=== PATIENT | female | born 2000 | race Caucasian/White ===

== ENCOUNTER → 2020-07-28 13:28 | Outpatient (BNVA) | payer OTHER, SELFPAY | PROVIDERS: Visit Provider Advanced Practice Midwife | DX: Z76.89 Persons encountering health services in other specified circumstances (principal) ==

== ENCOUNTER 2020-08-24 12:49 | Outpatient (REF) | payer OTHER, SELFPAY ==
[2020-08-26 09:57] LABS: C. trachomatis RNA TMA NOT DETECTED (NOT DETECTED); N. gonorrhoeae RNA TMA NOT DETECTED (NOT DETECTED)
== END 2020-08-24 12:50 | disposition home or self-care (01) ==
LOC: HO.LAB 12:49
PROVIDERS: Visit Provider Advanced Practice Midwife
DX: Z01.419 Encounter for gynecological examination (general) (routine) without abnormal findings (principal)
CPT/HCPCS: 36415; 81025; 87210; 87491; 87591

== ENCOUNTER → 2020-08-27 09:54 | Outpatient (BNVA) | payer OTHER, SELFPAY | PROVIDERS: Visit Provider Advanced Practice Midwife | DX: Z30.430 Encounter for insertion of intrauterine contraceptive device (principal) | CPT/HCPCS: 58300; 81025 ==

== ENCOUNTER → 2020-09-24 13:38 | Outpatient (BNVA) | payer OTHER, SELFPAY | PROVIDERS: Visit Provider Advanced Practice Midwife ==

== ENCOUNTER → 2020-09-25 10:11 | Outpatient (BNVA) | payer OTHER, SELFPAY | PROVIDERS: PCP Naturopath; Visit Provider Orthopaedic Surgery ==

== ENCOUNTER → 2020-12-17 12:55 | Outpatient (BNVA) | payer OTHER, SELFPAY | PROVIDERS: PCP Naturopath; Visit Provider Obstetrics & Gynecology ==

== ENCOUNTER → 2021-01-04 11:34 | Outpatient (BNVA) | payer OTHER, SELFPAY | PROVIDERS: PCP Naturopath; Visit Provider Advanced Practice Midwife | DX: N64.4 Mastodynia (principal) | CPT/HCPCS: 81025 ==

== ENCOUNTER → 2021-01-13 15:27 | Outpatient (BNVA) | payer OTHER, SELFPAY | PROVIDERS: PCP Naturopath; Visit Provider Obstetrics & Gynecology ==

== ENCOUNTER 2021-02-02 14:20 | Outpatient (REF) | payer OTHER, SELFPAY ==
--- NOTE | ~2021-02-02 | US_ITS ---
EXAMINATION: US DIAGNOSTIC ULTRASOUND BREAST, RIGHT CLINICAL INFORMATION: 20-year-old with intermittent grade size fullness outer right breast. No discharge. No prior breast imaging. Family history breast cancer, paternal grandmother. COMPARISON: None. TECHNIQUE: Ultrasound right breast is targeted to the 7:00 through 11:00 position. Grayscale imaging and color Doppler are performed without and with harmonics. Patient is able to point to area of concern at time of imaging. FINDINGS: There is no focal suspicious finding. There is no cystic or solid mass, architectural abnormality, duct ectasia, or edema in the soft tissue planes. Results are discussed with the patient at time of visit. US/US breast RT limited IMPRESSION: Normal study. ASSESSMENT: BI-RADS 1: Negative RECOMMENDATION: Patient should be managed based on the clinical impression. If clinically indicated, further evaluation may be considered with surgical consult. Decision to proceed with biopsy should be based on clinical grounds and degree of clinical concern.
== END 2021-02-02 14:21 | disposition home or self-care (01) ==
LOC: HO.MAMMO 14:20
PROVIDERS: Visit Provider Obstetrics & Gynecology
DX: N63.15 Unspecified lump in the right breast, overlapping quadrants (principal)
CPT/HCPCS: 76642

== ENCOUNTER → 2021-02-08 11:04 | Outpatient (BNVA) | payer OTHER, SELFPAY | PROVIDERS: PCP Naturopath; Visit Provider Advanced Practice Midwife ==

== ENCOUNTER 2021-02-22 14:11 | Emergency (ER) | payer OTHER, SELFPAY ==
[2021-02-22 15:54] VITALS: BP 108/78; PULSE 88; RESP 18; TEMP 36.6; O2SAT 99; BMI 22.4
[2021-02-22 16:12] LABS: Appearance Urine CLEAR; Color Urine YELLOW; Glucose Urine UA NEG (NEG); Leukocyte Esterase Urine NEG (NEG); Nitrite Urine NEG (NEG); Specific Gravity - Urine <= 1.005 (1.005-1.025); Urine Blood NEG (NEG); Urine Ketones NEG (NEG); Urine Protein NEG (NEG-TRACE)
[2021-02-22 17:31] LABS: Hematocrit 41.4 % (37-47); Hemoglobin 14.5 g/dl (12.0-16.0); Mean Corpuscular Hemoglobin 31.3 pg (27.0-33.0); Mean Corpuscular Volume 89.4 fL (80-98); Mean Platelet Volume 10.1 fL (9.4-12.3); Platelet Count 213 X10*3/uL (160-400); Red Blood Count 4.63 X10*6/uL (4.20-5.50); Red Cell Distribution Width 12.1 % (11.0-16.0); White Blood Count 9.5 X10*3/uL (4.8-10.8)
[2021-02-22 18:01] LABS: Anion Gap 12 (12-20); Blood Urea Nitrogen 7 mg/dL (9-16); Calcium 9.1 mg/dL (8.4-10.2); Carbon Dioxide 25 mmol/L (22-29); Chloride 105 mmol/L (96-108); Creatinine Clr Calc Pharmacy 101.3; Estimated Glomerular Filt Rate > 60; Glucose Random 94 mg/dL (60-115); Potassium 4.6 mmol/L (3.3-5.1); Sodium 137 mmol/L (135-145)
--- NOTE | 2021-02-22 18:38 | ED_ITS ---
HPI - Abdominal Pain General Chief Complaint: Abdominal Pain Stated Complaint: stomach pain since monday Time Seen by Provider: 02/22/21 18:38 Source: patient Mode of arrival: ambulatory Limitations: no limitations History of Present Illness HPI narrative: Patient with no significant past medical history for last 3 days been having nausea vomiting and diarrhea watery stools 7-10 times a day with upper abdominal pain no fever no chills no urinary complaints never had similar complaints in the past no use of alcohol Related Data Home Medications Medication Instructions Recorded Confirmed levonorgestrel 20 mcg/24 hours (6 INTRAUTERINE 09/24/20 yrs) 52 mg intrauterine device (Mirena) Previous Rx's Medication Instructions Recorded dicyclomine 20 mg tablet 20 mg PO QID PRN #20 tab 02/22/21 loperamide 2 mg capsule (Imodium 2 mg PO Q6H PRN #14 cap 02/22/21 A-D) Allergies Allergy/AdvReac Type Severity Reaction Status Date / Time No Known Allergies Allergy Verified 02/08/21 11:05 [No Known Allergies*] Review of Systems Review of Systems Yes all other systems are reviewed and are negative Physical Exam Vital Signs: Vital Signs: Last Vital Signs Temp 98 F 02/22/21 19:05 Pulse 75 02/22/21 19:05 Resp 15 02/22/21 19:05 BP 107/68 02/22/21 19:05 Pulse Ox 98 02/22/21 19:05 Body Mass Index 22.4 Appearance: Alert. Oriented X3. No acute distress. Eyes: PERRLA, ENT: Pharynx normal. Oral Mucosa moist Neck: Normal inspection. Neck supple. CVS: Normal heart rate and rhythm. Pulses normal. Respiratory: No respiratory distress. Equal air entry bilateral, no wheezing/rales/rhonchi Abdomen: Soft mild epigastric tenderness no tenderness in the right upper quadrant Bowel sounds are present, no mass palpable, no CVA tenderness Skin: Skin warm and dry. Normal skin color. Normal skin turgor. Extremities: No lower extremity edema. No calf tenderness Neuro: Oriented X 3. MDM - Abdominal Pain Lab Data Attestation: I reviewed the patient's lab results. Result diagrams: 02/22/21 17:27 02/22/21 17:27 Labs: Lab Results 02/22/21 02/22/21 02/22/21 Range/Units 16:05 17:27 17:27 WBC 9.5 (4.8-10.8) X10*3/uL RBC 4.63 (4.20-5.50) X10*6/uL Hgb 14.5 (12.0-16.0) g/dl Hct 41.4 (37-47) % MCV 89.4 (80-98) fL MCH 31.3 (27.0-33.0) pg MCHC 35.0 (31.0-35.0) g/dl RDW 12.1 (11.0-16.0) % Plt Count 213 (160-400) X10*3/uL MPV 10.1 (9.4-12.3) fL Absolute Nucleated RBC 0.000 (0.0-0.012) X10*3/uL Nucleated RBC % (auto) 0.0 (0.0-0.2) /100WBC Sodium 137 (135-145) mmol/L Potassium 4.6 (3.3-5.1) mmol/L Chloride 105 (96-108) mmol/L Carbon Dioxide 25 (22-29) mmol/L Anion Gap 12 (12-20) BUN 7 L (9-16) mg/dL Creatinine 0.72 (0.5-1.4) mg/dL Estim Creat Clear Calc 101.3 Estimated GFR > 60 Random Glucose 94 (60-115) mg/dL Calcium 9.1 (8.4-10.2) mg/dL Total Bilirubin 0.3 (0.0-1.0) mg/dL Direct Bilirubin 0.2 (0.0-0.5) mg/dL AST 23 (5-31) U/L ALT 18 (0-31) U/L Alkaline Phosphatase 57 (39-117) U/L Total Protein 6.6 (6.5-8.0) g/dL Albumin 4.2 (3.5-5.0) g/dL Lipase 35 (8-78) U/L Urine Color YELLOW Urine Appearance CLEAR Urine pH 6.0 (5.0-8.0) Ur Specific [place] <= 1.005 (1.005-1.025) Urine Protein NEG (NEG-TRACE) MG/DL Urine Glucose (UA) NEG (NEG) MG/DL Urine Ketones NEG (NEG) MG/DL Urine Blood NEG (NEG) Urine Nitrite NEG (NEG) Ur Leukocyte Esterase NEG (NEG) Discharge Plan Discharge Clinical Impression: Gastroenteritis Patient Disposition: Home, Self-Care Instructions: Gastroenteritis (ED) Additional Instructions: Drink plenty of fluids take medication as advised Prescriptions: New dicyclomine 20 mg tablet 20 mg PO QID PRN (Reason: abdominal pain) Qty: 20 RF: 0 loperamide [Imodium A-D] 2 mg capsule 2 mg PO Q6H PRN (Reason: loose stool) Qty: 14 RF: 0 No Action Mirena 20 mcg/24 hours (6 yrs) 52 mg intrauterine device intrauterine RF: 0 Stand Alone Forms: Work/School Release [facility] Past Medical History Medical History Cervical cancer screening Heavy menses Family History Family History Family/Other Breast cancer Social History Social History Alcohol intake: current Alcohol intake frequency: holidays/special occasions only Advance Directives: No Advance Directives Information Provided: Yes Patient : No Gender identity: female
[2021-02-22] MEDS: Dicyclomine HCl 10 MG CAPSULE 20 MG PO (19:02)
[2021-02-22] MEDS: Loperamide HCl 2 MG CAPSULE 4 MG PO (19:02)
[2021-02-22 19:05] VITALS: BP 107/68; PULSE 75; RESP 15; TEMP 36.6; O2SAT 98
--- NOTE | 2021-02-22 19:06 | PC.NURSE ---
Pt aaox4, resting on stretcher in NAD breathing with ease on RA. Pt c/o periumbilical cramping pain 11/30, denies n/v at this time. Pt medicated per SEP. Pt aware of plan pending, as per dispo. Pt offers no complaints. Stretcher low locked, call galvan and personal belongings within reach.
[2021-02-22 19:08] LABS: Alanine Aminotransferase 18 U/L (0-31); Albumin Level 4.2 g/dL (3.5-5.0); Alkaline Phosphatase 57 U/L (39-117); Aspartate Amino Transferase 23 U/L (5-31); Bilirubin Direct 0.2 mg/dL (0.0-0.5); Bilirubin Total 0.3 mg/dL (0.0-1.0); Lipase 35 U/L (8-78); Total Protein 6.6 g/dL (6.5-8.0)
== END 2021-02-22 19:33 | disposition home or self-care (01) ==
PROVIDERS: Emergency Provider Internal Medicine
DX: K52.9 Noninfective gastroenteritis and colitis, unspecified (principal); R11.2 Nausea with vomiting, unspecified
CPT/HCPCS: 36415; 80048; 80076; 81003; 83690; 85027; 99283; 99284

== ENCOUNTER 2021-08-31 15:08 | Outpatient (REF) | payer OTHER, SELFPAY ==
[2021-08-31 18:26] LABS: CT PCR NOT DETECTED (Not Detect.); NG PCR NOT DETECTED (Not Detect.)
== END 2021-08-31 15:09 | disposition home or self-care (01) ==
LOC: HO.LAB 15:08
PROVIDERS: Visit Provider Advanced Practice Midwife
DX: Z01.419 Encounter for gynecological examination (general) (routine) without abnormal findings (principal); Z20.2 Contact with and (suspected) exposure to infections with a predominantly sexual mode of transmission
CPT/HCPCS: 87491; 87591

== ENCOUNTER → 2022-03-22 10:25 | Outpatient (BNVA) | payer OTHER, SELFPAY | PROVIDERS: PCP Registered Nurse; Visit Provider Advanced Practice Midwife | DX: Z32.02 Encounter for pregnancy test, result negative (principal) | CPT/HCPCS: 81025 ==

== ENCOUNTER 2022-12-13 09:13 | Outpatient (REF) | payer OTHER, SELFPAY ==
[2022-12-14 06:00] LABS: CT PCR NOT DETECTED (Not Detect.); NG PCR NOT DETECTED (Not Detect.)
[2023-01-03 09:44] LABS: HPV mRNA E6/E7 rflx Not Detected (Not Detected)
== END 2022-12-13 09:14 | disposition home or self-care (01) ==
LOC: HO.LNP 09:13
PROVIDERS: PCP Registered Nurse; Visit Provider Advanced Practice Midwife
DX: Z01.419 Encounter for gynecological examination (general) (routine) without abnormal findings (principal); Z20.2 Contact with and (suspected) exposure to infections with a predominantly sexual mode of transmission
CPT/HCPCS: 0353U; 87624; 88142

== ENCOUNTER 2023-03-01 13:01 | Outpatient (AMB) | payer OTHER, SELFPAY ==
[2023-03-01 13:10] VITALS: BP 100/62; BMI 23.8
--- NOTE | 2023-03-01 13:10 | A.OFFVIS_ITS ---
Intake Vital Signs 03/01/23 13:10 Height 5 ft 2 in Weight 130 lb BMI 23.8 BP 100/62 Intake Visit Reasons: iud removal Intake Note: The patient agreed to use of a medical care administrator during this encounter. Scribed for ROBBIE Mccall by Essie Melendez medical care administrator, on 03/01/2023 at 1:17 Pm EST. Language Arts Teacher: Language Arts Teacher Present (Tiffany) Allergies No Known Allergies [No Known Allergies*] Allergy (Verified 03/01/23 13:11) Is last menstrual period known: Yes Last menstrual period: 02/25/23 HPI HPI Comments History of Present Illness Details She is here with interest of removing Mirena IUD and wants to start OCP's and give her body a break from the IUD placed 2 yrs. ago. Same partner x 3+ years. She denies any contraindications to control such as: migraines with aura, history of DVT or pulmonary emboli, high blood pressure, liver disease, thrombolic disorders, Lupus, +JOSE, or smoking. Reviewed use, side effects and warnings including ACHES. 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 Sexual orientation: Straight/Heterosexual Gender identity: Female Female Reproductive History Menstrual Age of Menarche: 11 Date of last menstrual period: 02/25/23 Physical Exam Vital Signs: Last Vital Signs BP 100/62 03/01/23 13:10 BMI result Body Mass Index 23.8 Const General: cooperative, healthy appearing, comfortable, no acute distress, well developed, alert and awake Other: General: Yes bladder normal to palpation External Female Exam: normal external appearance and normal appearance of the urethra Speculum Exam - Vagina: normal appearance of the vagina, normal palpation and normal vaginal discharge Speculum Exam - Cervix: normal appearance of the cervix, normal palpation and Other cervical findings present (IUD strings visible) Bimanual exam- vagina & uterus: normal bimanual exam, normal palpation, bladder normal to palpation and normal palpation Bimanual Exam- Adnexa, other: normal adnexae and no masses Office Procedures IUD Insert/Removal Details Details: HPI She presents for IUD removal. She was counseled and consented for procedure. She was counseled of risks for bleeding, pain, infection, and injury to uterus, tubes, ovaries, bowel and bladder during the procedure. She was encouraged to keep the IUD in place as the method is superior for prevention and she does not need to take a break, the insurance may not cover the device to be reinserted if she changes her mind about the pill use in months or years due to the expense of the product. She is adamant she wants the IUD removed today. Procedure The patient was placed in the dorsal lithotomy position. A speculum was inserted vaginally, and the cervix and strings were visualized at the os. A ring forcep was utilized, and the strings were grasped and gently tugged x1, removing the IUD device easily and intact. Minimal bleeding was observed. All of the equipment was removed. The patient tolerated the procedure well and left the office in good condition. IUD successfully removed today. Plan Monitor periods. Warnings reviewed with patient. Instructions given to call if temp >100.4, flu like sx, SOB, fatigue, lightheadedness/dizziness, abd pain, bloating or abd distention, bowel changes including rectal bleeding, bladder changes, foul odor or heavy vaginal bleeding. She will call office with any questions or concerns. [id number] Removal Procedure code (CPT) selection complete Assessment & Plan Assessment & Plan (1) control counseling: Code(s): Z30.09 - Encounter for other general counseling and advice on contraception Plan: Discussed: Instructed to start the pill today. Recommended to take pill at same time every day and with food to prevent stomach upset. Switch to bedtime intake with food if still experiencing nausea. Consider setting the cell phone for alerts as a reminder to take the pill at the same time. Use a back up method (condoms or abstinence if needed) if any late or missed doses until the end of the pill pack. Take the dose as soon as possible, and take your regular pill on time. If you miss the pill often, then consider another option of control. Always use condoms for STD prevention if indicated. Instructed patient to take for at least 3 months the body is acclimated to it. Most side effects go away with time in the first three months. Warnings: go to ER if and loss of vision/blindness, severe headache, chest pain or difficulty breathing, severe abdominal pain, or any pain or swelling in an extremity. Return in 2.5-3 months for pill check while on the active pills, or sooner if any concerns. Rx for Apri sent to pharmacy. All of her questions and concerns were addressed to the best of my ability and shared decision making. She is agreeable to plan of care. (2) Encounter for IUD removal: Code(s): Z30.432 - Encounter for removal of intrauterine contraceptive device Plan: See procedure note. (3) Initiation of OCP (BCP): Code(s): Z30.011 - Encounter for initial prescription of contraceptive pills Medications: New desogestrel-ethinyl estradiol 0.15-0.03 mg (Apri) 1 tab PO DAILY 84 days PRN 84 tabs 0RF ocp Coding Level of Care Code Procedure Only Diagnoses control counseling Z30.09 Encounter for IUD removal Z30.432 Initiation of OCP (BCP) Z30.011 CPT Codes Details - CPT: 67572-NGQ Removal ([id number]) Comment additional counseling for initiation of BC
== END 2023-03-01 13:30 | disposition home or self-care (01) ==
LOC: HO.HWS 13:01
PROVIDERS: PCP Registered Nurse; Visit Provider Advanced Practice Midwife
DX: Z30.09 Encounter for other general counseling and advice on contraception (principal); Z30.432 Encounter for removal of intrauterine contraceptive device
CPT/HCPCS: 58301

== ENCOUNTER → 2023-03-01 13:01 | Outpatient (BNVA) | payer OTHER, SELFPAY | PROVIDERS: PCP Registered Nurse; Visit Provider Advanced Practice Midwife | DX: Z30.432 Encounter for removal of intrauterine contraceptive device (principal); Z30.09 Encounter for other general counseling and advice on contraception | CPT/HCPCS: 58301 ==

== ENCOUNTER 2023-04-12 13:25 | Outpatient (AMB) | payer OTHER, SELFPAY ==
[2023-04-12 13:26] VITALS: BP 114/66; BMI 23.8
--- NOTE | 2023-04-12 13:26 | A.OFFVIS_ITS ---
Intake Vital Signs 04/12/23 13:26 Height 5 ft 2 in Weight 130 lb BMI 23.8 BP 114/66 Intake Visit Reasons: follow up control ok per malka Intake Note: The patient agreed to use of a medical underwriter during this encounter. Scribed for ROBBIE Mccall by Essie Melendez medical underwriter, on 04/12/2023 at 1:37 am EST. Allergies desogestrel [From Apri] Allergy (Intermediate, Verified 04/12/23 13:28) Hives ethinyl estradiol [From Apri] Allergy (Intermediate, Verified 04/12/23 13:28) Hives Is last menstrual period known: Yes Last menstrual period: 02/24/23 HPI HPI Comments History of Present Illness Details She is here today with complaints of a rash/allergic reaction left side of her neck with hives-rash since resolved, some itching remains. She believes it was due to her Apri BC after 1-1.5wks of use. Per triage note, no new foods, lotions, soaps or other substances know to cause her rash. Has tried OCP when she was 11 for about a year and is unsure of the brand with no reactions. Has also tried Depo and Nexplanon with no allergic reactions or hive break outs. Reports a short term menses in February but did not have a menses for a long time while on BC. Reports UPI the , , and lastly the of March. She is interested in restarting another pill for her heavy menses. 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 Sexual orientation: Straight/Heterosexual Gender identity: Female Female Reproductive History Menstrual Age of Menarche: 11 Date of last menstrual period: 02/24/23 Physical Exam Vital Signs: Last Vital Signs BP 114/66 09/20/23 13:26 BMI result Body Mass Index 23.8 Const General: cooperative, healthy appearing, comfortable, no acute distress, well developed, alert and awake Results AMB Test Urine AMB Test Urine Negative Last Edit by LENNY Sanchez on 04/12/23 13:43 Results Reviewed Results Reviewed: Laboratory Last Values [facility] Negative 04/12/23 13:43 Assessment & Plan Assessment & Plan (1) control counseling: Code(s): Z30.09 - Encounter for other general counseling and advice on contraception Plan: Discussed: D/w pt the different options of non hormonal options for control and prevention methods including, ParaGard IUD, Caya diaphragm, NFP, withdrawal, condoms and spermicide. -Reviewed with hospital pharmacist, and the [facility] pharmacist (Raul) today re: reaction/rash. Unknown to the root causative agent for the reaction. Plan is to omit any dyes and not take the placebo week pills, common agents for allergic reactions and BC per pharmacy. Advised to have liquid or gel Benadryl on hand and to go to the hospital if any symptoms of difficulty breathing, facial swelling via 911. Risk of reaction again is possible. Instructed take at home test 2 weeks after UPI and to start the pill within the first 5 days of the menstrual period. Recommended to take pill at same time every day and with food to prevent stomach upset. Switch to bedtime intake with food if still experiencing nausea. Use a back up method (condoms or abstinence if needed) if any late or missed doses until the end of the pill pack. Take the dose as soon as possible, and take your regular pill on time. If you miss the pill often, then consider another option of control. Always use condoms for STD prevention if indicated. Instructed patient to take for at least 3 months the body is acclimated to it. Most side effects go away with time in the first three months. Warnings: go to ER if and loss of vision/blindness, severe headache, chest pain or difficulty breathing, severe abdominal pain, or any pain or swelling in an extremity. Phone in, or portal message her progress with the pill in the first pack for any additional refills, one pack only ordered. Return in 3 months for pill check, or sooner if any concerns. Rx for sent to pharmacy. Instructions given. All of her questions and concerns were addressed to the best of my ability and shared decision making. She is agreeable to plan of care. (2) Allergic reaction: Code(s): T78.40XA - Allergy, unspecified, initial encounter Orders: Orders AMB HCG Urine Test Today Z32.02 - Encounter for test, result negative Medications: New desogestrel-ethinyl estradiol 0.15-0.03 mg (Cyred EQ) skip placebo week 1 tab PO DAILY 28 tabs 0RF 28 days Discontinued desogestrel-ethinyl estradiol 0.15-0.03 mg (Apri) Discontinued Reason: Doctor's Order 1 tab PO DAILY 84 days PRN 84 tabs 0RF ocp Coding Level of Care Code Est Pt Level 3 (60768) Diagnoses control counseling Z30.09 Allergic reaction T78.40XA
== END 2023-04-12 14:00 | disposition home or self-care (01) ==
PROVIDERS: PCP Registered Nurse; Visit Provider Advanced Practice Midwife
DX: Z30.09 Encounter for other general counseling and advice on contraception (principal); T78.40XA Allergy, unspecified, initial encounter; Z32.02 Encounter for pregnancy test, result negative
CPT/HCPCS: 99213

== ENCOUNTER → 2023-04-12 13:25 | Outpatient (BNVA) | payer OTHER, SELFPAY | PROVIDERS: PCP Registered Nurse; Visit Provider Advanced Practice Midwife | DX: Z30.09 Encounter for other general counseling and advice on contraception (principal); T78.40XA Allergy, unspecified, initial encounter | CPT/HCPCS: 81025 ==

== ENCOUNTER 2023-05-24 11:21 | Outpatient (AMB) | payer OTHER, SELFPAY ==
--- NOTE | 2023-05-24 11:22 | A.OFFVIS_ITS ---
Intake Intake Visit Reasons: Preg Consult Radio Reporter Required: No Information Interpreted: non-clinical & clinical Accompanied by: Self / Same As Patient Allergies desogestrel [From Apri] Allergy (Intermediate, Verified 05/24/23 11:22) Hives ethinyl estradiol [From Apri] Allergy (Intermediate, Verified 05/24/23 11:22) Hives Medication List - Last Reconciled 05/24/23 by Krystle Martínez CNM PNV #[id number] 30 mg iron-10 mg iron-1 mg caps PO Is last menstrual period known: Yes Last menstrual period: 04/18/23 HPI Preg Consult HPI Details Patient is here for consult she had a Mirena that she had removed in February and then she went on control pills and she said she had allergic reaction to them so stop those and then she and her partner decided that if it happened it happened and they were open to and she had her last period which was about 3 days heavy in March on 04/18 and them when she did not get a period on May 18 she did a test at home and it was positive. She and her partner happy. 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 She is pretty sure she would want to go to [facility] for care and delivery not having any nausea her right breast which is her larger breast is a little bit sensitive. 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 Code(s): Z32.01 - Encounter for test, result positive Plan ----I reviewed her feelings about the , I reviewed her menstrual hx, and ob hx, and past medical hx. I reviewed goals of eating well, healthy, avoiding toxins and medications. Goals of moderate wt gain, and continuing to be active. Walking is good exercise. She should speak to any other prescribing providers involved in her care to see if any meds that are prescribed should be continued. drinking plenty of water is a good goal. I reviewed normal early symptoms, and next steps involved in care here. I reviewed that now deliveries are taking place elsewhere. I reviewed that while she could receive care here and then go and deliver at [facility], I actually recommend that since this would be her 1st that her healthcare needs and needs would be better served by establishing care with the team that she chooses to be involved with her entire course and delivery from the start I gave her a list of practices that deliver at [facility] and I also told her about 7 sisters but that would be a very long way for her to go. Since she does not have any major high risk health issues her health and course could very well be managed by the midwifery team and I would shared that with her as well if there were any uncertainty about her dates she could have an ultrasound but going over her menstrual history it sounded like she actually had regular menses before starting on the different methods of control which altered her bleeding patterns while she was on them and since her dates are fairly certain she would be 5 weeks and 1 day now and be little bit early to do an ultrasound in any event but I recommend that she simply establish care at [facility] from the start she will call there for care she may have an FABIÁN letter the [facility] for 01/23/2024 as in FABIÁN based on her sure LMP of 04/18 Orders: Orders AMB HCG Urine Test Today Z32.01 - Encounter for test, result positive Coding Level of Care Code Est Pt Level 3 (28739) Diagnoses Positive urine test Z32.01
== END 2023-05-24 12:01 | disposition home or self-care (01) ==
PROVIDERS: PCP Registered Nurse; Visit Provider Advanced Practice Midwife
DX: Z32.01 Encounter for pregnancy test, result positive (principal)
CPT/HCPCS: 99213

== ENCOUNTER → 2023-05-24 11:21 | Outpatient (BNVA) | payer OTHER, SELFPAY | PROVIDERS: PCP Registered Nurse; Visit Provider Advanced Practice Midwife | DX: Z32.01 Encounter for pregnancy test, result positive (principal); Z3A.01 Less than 8 weeks gestation of pregnancy | CPT/HCPCS: 81025 ==